=== PATIENT | male | born 2000 | race Caucasian/White ===

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

== ENCOUNTER 2021-03-17 13:03 | Outpatient (CLI) | payer OTHER | END 2021-03-17 23:59 | disposition home or self-care (01) | LOC: CARD 13:03 | PROVIDERS: ATTEND Psychiatry & Neurology Neurology | DX: R94.01 Abnormal electroencephalogram [EEG] (principal); Z87.898 Personal history of other specified conditions | CPT/HCPCS: 95819 ==